=== PATIENT | female | born 1965 | race Caucasian/White ===

== ENCOUNTER 2017-03-15 01:10 | Inpatient (IN) | payer MEDICAID ==
[2017-03-15] MEDS ORDERED: Sodium Chloride 0.9% 1,000 ML IV ONE (01:33)
--- NOTE | 2017-03-15 01:35 | ED Physician Chart ---
Chief Complaint/HPI - Patient Information Date Seen:: 03/15/17 Time Seen:: 01:29 Chief Complaint:: ill History of Present Illness:: pt sent from [place] for cough and vomiting. ed staff has heard no cough. pt sev disability and is unable to give any hx...not verbal. has fever noted in ed and very high bp also Allergies:: Allergies Allergy/AdvReac Type Severity Reaction Status Date / Time Penicillins [PCN] Allergy Verified 03/15/17 01:26 Historian:: Patient Review of Systems - Review of Systems General/Constitutional: Fever, Other (nonverbal pt...severe ltd ros available) Eyes: Other (blind) Pulmonary: Cough GI: Vomiting Neurological: Weakness, Confusion (baseline//mental disability) Past Medical History - Past Medical History Past Medical History: Seizures, Other (blind, severe mental disability) Social History: Care Facility Medication: Reviewed Family Medical History - Family Member Mother History Unknown: Yes Physical Exam - Physical Examination General/Constitutional: Awake, Well-developed, well-nourished, Alert, No distress, Non-toxic appearing Other Gen/Cons comments:: pt sev disabled. eyes are bilat dejenerated/blind. all limbs contractured. no overt resp difficulty. no cough heard. Head: Atraumatic Eyes: Lids, conjuctiva normal Skin: Nl inspection, No rash, No skin lesions, No ecchymosis, Well hydrated, No lymphadenopathy ENMT: External ears, nose nl, Nasal exam nl, Lips, teeth, gums nl Neck: Nontender, Full ROM w/o pain, No JVD, No nuchal rigidity, No bruit, No mass, No stridor Respiratory: Nl effort/Exclusion, Clear to Auscultation, No Wheeze/Rhonchi/Rales Cardio Vascular: RRR, No murmur, gallop, rubs, NL S1 S2 GI: No tenderness/rebounding/guarding, No organomegaly, No hernia, Nondistended , No mass/bruits, No McBurney tenderness Other GI comments:: bowel sounds are sltly high in pitch. no obv tndrness..difficult to assess this pt due to nonverbal state. : No CVA tenderness Extremities: No tenderness or effusion, Full ROM, normal strength in all extremities, No edema, Normal digits & nails Neuro/Psych: DTR's symmetric, No focal deficits Other Neuro/Psych comments:: pt chronically debilitated...no obv acute neuro changes. cant comply w detailed exam. Misc: normal gait, Normal back, No paraspinal tenderness Labs/Radiology/EKG Results - Lab Results Results: Laboratory Tests 03/15/17 03/15/17 03/15/17 01:30 01:30 01:30 WBC 13.7 H RBC 4.51 Hgb 14.1 Hct 41.5 MCV 92.0 MCH 31.2 H MCHC Differential 33.9 RDW 13.7 Plt Count 303 MPV 6.9 Band Neutrophils % 6 Neutrophils (Manual) 88 H Lymphocytes 4 L Monocytes 2 Platelet Estimate ADEQUATE Sodium 141 Potassium 3.6 Chloride 101 Carbon Dioxide 25.2 Anion Gap 18.4 H BUN 13 Creatinine 0.4 L Est GFR ( Amer) > 60.0 Est GFR (Non-Af Amer) > 60.0 BUN/Creatinine Ratio 32.5 Glucose 165 H Whole Bld Lactic Acid 3.07 H* Calcium 8.9 Total Bilirubin 0.3 AST 21 ALT 14 Alkaline Phosphatase 88 Troponin I Total Protein 6.9 Albumin 3.7 Globulin 3.2 Albumin/Globulin Ratio 1.2 Lipase 20 Urine Source Urine Color Urine Clarity Urine pH Ur Specific [place] Urine Protein Urine Glucose (UA) Urine Ketones Urine Blood Urine Nitrate Urine Bilirubin Urine Urobilinogen Ur Leukocyte Esterase Urine RBC Urine WBC Ur Epithelial Cells Urine Bacteria Urine Trichomonas Carbamazepine 6.9 03/15/17 03/15/17 01:30 02:50 WBC RBC Hgb Hct MCV MCH MCHC Differential RDW Plt Count MPV Band Neutrophils % Neutrophils (Manual) Lymphocytes Monocytes Platelet Estimate Sodium Potassium Chloride Carbon Dioxide Anion Gap BUN Creatinine Est GFR ( Amer) Est GFR (Non-Af Amer) BUN/Creatinine Ratio Glucose Whole Bld Lactic Acid Calcium Total Bilirubin AST ALT Alkaline Phosphatase Troponin I 0.01 Total Protein Albumin Globulin Albumin/Globulin Ratio Lipase Urine Source CLEAN C Urine Color YELLOW Urine Clarity CLEAR Urine pH 7.0 Ur Specific [place] 1.015 Urine Protein 30 H Urine Glucose (UA) NEGATIVE Urine Ketones TRACE Urine Blood NEGATIVE Urine Nitrate NEGATIVE Urine Bilirubin NEGATIVE Urine Urobilinogen 1.0 Ur Leukocyte Esterase NEGATIVE Urine RBC 0-2 Urine WBC 0-2 Ur Epithelial Cells FEW Urine Bacteria FEW Urine Trichomonas OCCASIONAL H Carbamazepine - Radiology Results Results: ct abd/p- scattered air-fluid levels in small bowel . small fat cont periumbilical hernia. mild diverticulosis/no diverticulitis. elev hemidiaphragm ED Septic Shock - . Is Septic Shock (SBP<90, OR Lactate>4 mmol\L) present?: No Reassessment (Disposition) - Reassessment Reassessment:: spoke w dr arana at aprox 3 am who is admitting pt. cxr had not been completed due to staff oversight at that time was re-requested. cxr appears to show a ? inf in left upper lung. very unusual pattern and unclear to me what exactly this is so have ordered ct chest to eval. 6;40A CALL PLACED TO DR ARANA TO NOTIFY OF CXR. IF no call back by 7am will notify next shift Reassessment Condition:: Unchanged - Diagnosis Diagnosis:: Ileus vs Bowel Obstruction ? pneumonia left upper lung - Patient Disposition Admitted to:: Med/Surg Condition at Disposition:: Unchanged
[2017-03-15 01:44] LABS: HEMATOCRIT 41.5 % (35.0-45.0); HEMOGLOBIN 14.1 gm/dL (11.7-15.5); MEAN CORPUSCULAR HEMOGLOBIN 31.2 pg (27.0-31.0); MEAN CORPUSCULAR HGB CONC 33.9 pg (28.0-36.0); MEAN PLATELET VOLUME 6.9 fl; PLATELET COUNT 303 Th/cmm (150-400); RED BLOOD COUNT 4.51 Mil/cmm (3.80-5.10); RED CELL DISTRIBUTION WIDTH 13.7 % (11.5-20.0)
[2017-03-15 01:52] LABS: WHITE BLOOD COUNT 13.7 Th/cmm (4.8-10.8)
[2017-03-15 02:01] LABS: ALB/GLOB RATIO 1.2 (1.0-1.8); ALKALINE PHOSPHATASE 88 U/L (34-104); ANION GAP 18.4 (7.0-16.0); BILIRUBIN,TOTAL 0.3 mg/dL (0.3-1.0); BUN - UREA NITROGEN 13 mg/dL (7-25); BUN/CREATININE RATIO 32.5; CALCIUM SERUM 8.9 mg/dL (8.6-10.3); CARBON DIOXIDE 25.2 mEq/L (21.0-31.0); CHLORIDE 101 mEq/L (98-107); CREATININE - SERUM 0.4 mg/dL (0.6-1.2); GLUCOSE 165 mg/dL (70-105); LIPASE 20 U/L (11-82); POTASSIUM SERUM 3.6 mEq/L (3.5-5.1); SGOT 21 U/L (13-39); SGPT/ALT 14 U/L (7-52); SODIUM SERUM 141 mEq/L (136-145)
[2017-03-15 02:13] LABS: BAND NEUTROPHILE 6 % (0-10); NEUTROPHILS 88 % (40-80); PLATELET ESTIMATE ADEQUATE (NORMAL); TOTAL CELLS COUNTED 100
[2017-03-15 03:00] LABS: URINE BILIRUBIN NEGATIVE (NEGATIVE); URINE BLOOD NEGATIVE (NEGATIVE); URINE COLOR YELLOW; URINE GLUCOSE (UA) NEGATIVE (NEGATIVE); URINE KETONE TRACE mg/dL (NEGATIVE); URINE PROTEIN 30 mg/dL (NEGATIVE)
[2017-03-15 03:03] LABS: URINE BACTERIA FEW /hpf (NONE SEEN); URINE EPITHELIAL CELLS FEW /lpf (FEW); URINE RBC 0-2 /hpf (0-5); URINE WBC 0-2 /hpf (0-5)
[2017-03-15] MEDS ORDERED: Levofloxacin 500mg/100mL 500 MG/100 ML BAG IV ONE (05:30)
[2017-03-15] MEDS ORDERED: VITAMIN D3 PO SCH (09:00)
[2017-03-15] MEDS ORDERED: CALCIUM CITRATE PO SCH (09:00)
[2017-03-15] MEDS ORDERED: EAC PO SCH (09:00)
[2017-03-15] MEDS ORDERED: [UNRECOGNIZED DRUG - OTHER] PO SCH (09:00)
[2017-03-15] MEDS ORDERED: Non-Formulary Item 1 EA (Carbamazepine [Tegretol Xr] 400 MG) PO SCH (09:00)
--- NOTE | 2017-03-15 09:03 | Diagnostic Imaging Report ---
Portable chest x-ray HISTORY: Cough There is a severe scoliosis of the thoracolumbar spine convexity to the right. Patient is rotated. Heart size difficult to assess. Allowing for the deformity and poor inspiration, no focal pulmonary processes are seen. Retrocardiac air density is noted suggesting a hiatal hernia. IMPRESSION: 1. Severe scoliosis 2. No definite acute focal pulmonary processes 3. Retrocardiac air density suggesting a hiatal hernia. 4. Poor delineation of the aortic arch. Congenital abnormality cannot be excluded.
--- NOTE | 2017-03-15 09:11 | Diagnostic Imaging Report ---
CT scan abdomen and pelvis without intravenous contrast HISTORY: Vomiting Total DLP equals 410 CTDI equals 8.4 Exam is limited due to difficulty in patient positioning. There is a severe scoliosis of the thoracolumbar spine convexity to the right. Severe diffuse degenerative changes. Limited sections through the lower chest demonstrate findings consistent with a large hiatal hernia with a significant portion of the stomach in a retrocardiac location. Detail is limited due to the absence of oral/bowel contrast. No focal hepatic lesions are seen. The spleen appears normal. A punctate calculus is seen in the medullary region of the right kidney. No hydronephrosis. Subtle faint punctate calcification noted in the medullary region of the left kidney. No hydronephrosis. The exam of the pelvis demonstrates preservation of normal fat planes. No abnormal soft tissue masses or abnormal fluid collections. IMPRESSION: 1. Findings consistent with a relatively large retrocardiac hiatal hernia 2. Severe scoliosis of the thoracolumbar spine along with severe diffuse degenerative changes 3. Punctate bilateral renal calculi without hydronephrosis.
[2017-03-15] MEDS ORDERED: Fleet Enema 135 mL RC PRN (09:32)
[2017-03-15] MEDS ORDERED: Lactulose 10 Gm/15 mL 30mL UDC PO PRN (09:32)
[2017-03-15] MEDS ORDERED: Magnesium Hydroxide (MOM) 30 mL UDC PO PRN (09:32)
[2017-03-15] MEDS ORDERED: Promethazine DM 6.25/15mg-5mL 5 ML SYR PO PRN (09:32)
[2017-03-15] MEDS: Calcium Carb/Vit D 500 mg/200 U Tab PO SCH (10:53)
[2017-03-15] MEDS: Aspirin 81mg Chewable Tab PO SCH (10:53)
[2017-03-15] MEDS: Calcitonin (Salmon) 200 Iu/Actuation 3.7mL NS SCH (10:54)
[2017-03-15 10:55] LABS: MEAN CORPUSCULAR HEMOGLOBIN 31.8 pg (27.0-31.0)
[2017-03-15 10:58] LABS: % BASOPHILS 0.2 % (0.0-2.0); % EOSINOPHILS 0.7 % (0.0-5.0); % LYMPHOCYTES 6.8 % (20.0-50.0); % MONOCYTES 4.3 % (2.0-10.0); HEMOGLOBIN 12.7 gm/dL (11.7-15.5); MEAN CELL VOLUME 92.6 fl (81-100); MEAN CORPUSCULAR HGB CONC 34.4 pg (28.0-36.0); MEAN PLATELET VOLUME 6.8 fl; NEUTROPHILE ABSOLUTE 7.1 Th/cmm (1.8-8.0); PLATELET COUNT 244 Th/cmm (150-400); RED BLOOD COUNT 3.99 Mil/cmm (3.80-5.10); RED CELL DISTRIBUTION WIDTH 14.2 % (11.5-20.0)
[2017-03-15 11:01] LABS: WHITE BLOOD COUNT 8.1 Th/cmm (4.8-10.8)
[2017-03-15 11:14] LABS: ALB/GLOB RATIO 1.1 (1.0-1.8); ALKALINE PHOSPHATASE 75 U/L (34-104); ANION GAP 8.2 (7.0-16.0); BILIRUBIN,TOTAL 0.3 mg/dL (0.3-1.0); BUN - UREA NITROGEN 8 mg/dL (7-25); BUN/CREATININE RATIO 26.7; CALCIUM SERUM 8.6 mg/dL (8.6-10.3); CARBON DIOXIDE 25.5 mEq/L (21.0-31.0); CHLORIDE 109 mEq/L (98-107); CHOLESTEROL 154 mg/dL (<200); CREATININE - SERUM 0.3 mg/dL (0.6-1.2); GLUCOSE 99 mg/dL (70-105); MAGNESIUM 1.7 mg/dL (1.9-2.7); POTASSIUM SERUM 3.7 mEq/L (3.5-5.1); SGOT 18 U/L (13-39); SGPT/ALT 11 U/L (7-52); SODIUM SERUM 139 mEq/L (136-145); TRIGLYCERIDES 53 mg/dL (<150)
--- NOTE | 2017-03-15 11:14 | Diagnostic Imaging Report ---
KUB abdominal film HISTORY: Abdominal distention There is a nonspecific gas pattern of nondilated bowel. No free intraperitoneal air. Severe scoliosis of the thoracolumbar spine convexity to the right. IMPRESSION: 1. Nonspecific bowel gas pattern with nondilated large and small bowel 2. Severe scoliosis and degenerative changes within the spine
[2017-03-15] MEDS: Albuterol/Ipratropium Neb 3 ML AERS HHN SCH ×4 (11:31→22:52)
[2017-03-15] MEDS: D5-0.45NS 1,000 ML IV SCH (11:31)
[2017-03-15] MEDS: Levofloxacin 500mg/100mL 500 MG/100 ML BAG IV SCH (11:49)
--- NOTE | 2017-03-15 14:34 | History & Physical ---
ADMIT DATE: 03/15/2017 CHIEF COMPLAINT: VOMITING, COUGHING HISTORY OF PRESENT ILLNESS: The patient is a 52-year-old female with profound MR, seizure d/o, blindness, OP who was transferred from [facility] with the above mentioned symptoms. Pt apparently had also elevated temps at the board and care. Pertinent findings upon admission include leukocytosis (13.7), CT scan showing air-fluid levels, diverticulosis/diverticulitis and possible LYNDA infiltrate. PAST MEDICAL HISTORY: As noted above. PAST SURGICAL HISTORY: None listed, FAMILY HISTORY: Noncontributory. SOCIAL HISTORY: She lived at a B/C. No smoking, etoh. ALLERGIES: PENICILLINS. OUTPATIENT MEDICATIONS: Fleet enema q. 96 hours p.r.n. for severe constipation, milk of magnesia 30 mL hours, vitamins every day, acetaminophen p.r.n. for pain and fever, Dulcolax 10 mg q. 96 hours for mild constipation, calcitonin 200 international units every day, calcium with vitamin D3 b.i.d., carbamazepine 200 q. p.m. and 400 mg b.i.d. REVIEW OF SYSTEMS: CONSTITUTIONAL: fevers. CARDIAC: No chest pain or palpitations. PULMONARY: cough, ?productive GASTROINTESTINAL: vomiting. No reports of melena/brbpr or hematemesis GENITOURINARY: No bladder habit changes reported. NEUROLOGIC: more lethargic per medical records. PHYSICAL EXAMINATION: VITAL SIGNS: T-current is 99.1, T-max was 100.2, pulse 92, blood pressure 169/93, respirations 16-20, and satting 94-97% on 2 liters. GENERAL: WN, developmentally delayed female HEAD AND NECK: No jvd CARDIOVASCULAR: Regular rate with distant sounds LUNGS: Crackles bibasilarly, decreased at bases. ABDOMEN: Soft, supple, mildly tender, mod distended, normoactive bowel sounds. EXTREMITIES: Contracted upper and lower extremities. LABORATORY DATA: White count 13.7, H and H 14 and 41 and platelet count of 303. Chemistry showed anion gap of 18.4, BUN 13, creatinine 0.4, glucose 165. Lactic acid 1.71. LFTs were essentially within normal limits. UA showed positive for protein. Carbamazepine was 6.9. Chest x-ray showing severe scoliosis. No evidence of acute focal pulmonary processes, retrocardiac density suggesting hiatal hernia, poor delineation of aorta arch. CT of the abdomen and pelvis shows severe scoliosis of thoracolumbar spine, convexity to the right, severe diffuse DJD, no focal hepatic lesions, so the findings are consistent with a relatively large retrocardiac hiatal hernias, severe scoliosis. IMPRESSION: 1. R/O SBO vs ileus/constipation 2. Diverticulosis/diverticulitis. 3. Leukocytosis. 4. LYNDA infiltrate? 5. Fevers, rule out sepsis. 6. Severe intellectual disability. 7. Legally blind 8. Seizure d/o-stable 9. Severe scoliosis PLAN: The patient has been admitted to [facility] for further management and care. Kub will be order and diet will be started and advanced. Will monitor for GI symptomatology. She will be placed on Levaquin 500 mg IV every day and pulmonary supportive care with DuoNeb. Sputum C and S has been ordered. The patient also will be followed up with a repeat x-ray in the morning. The patient has been pancultured and she will be started on blood pressure medication as well as p.r.n. for SBP greater than 160. JOB# [id number] ERNESTINE
--- NOTE | 2017-03-15 16:59 | Admit Criteria Form ---
Admit Criteria Forms - Admit Criteria Diagnosis: PULMONARY DISEASE GRG Clinical Indications for Admission to Inpatient Care ( Place 'X' for any and all applicable criteria): Hospital admission is needed for appropriate care of the patient because of ANY ONE of the following(1): [ ]I. Impending or actual respiratory arrest ( Use Respiratory Failure Criteria for severe respiratory disease and long-term mechanical ventilation patients) (4) [ ]II. Severe airflow or ventilation abnormalities (not responsive to emergency and observation care treatment as appropriate) as indicated by ANY ONE of the following(5)(6)(7)(8) : [ ]a) PCO2 > 42 mm Hg (5.6 kPa) and pH < 7.35 (new) [ ]b) Documented PCO2 increase > 5 mm Hg (0.7 kPa) from disease baseline [ ]c) Airflow measurements[A] < 60% of previous best or predicted ( e.g., PEF <300 L/minute) despite intensive emergent treatment[B] [ ]d) Required respiratory treatments that are performable only in acute inpatient setting [ ]III. Severe respiratory findings (not responsive to emergency and observation care treatment as appropriate) including ANY ONE of the following(5)(8)(9): [ ]a) Respiratory distress as indicated by ALL of the following(5)(10): [ ]i) Patient with ANY ONE of the following: [ ]1) Dyspnea (difficulty breathing) [ ]2) Abnormal breathing pattern (eg, chest retractions) [ ]3) Tachypnea [ ]4) Other evidence of difficulty breathing [ ]ii) Evidence of respiratory compromise indicated by ANY ONE of the following: [ ]1) Hypoxemia [ ]2) Altered mental status [ ]3) Other evidence of respiratory compromise (eg, pulmonary edema on chest x-ray) [ ]b) Stridor [ ]c) Gross hemoptysis(11) [ ]d) Acute cyanosis [ ]IV. High-risk pulmonary infection as indicated by ANY ONE of the following( 19)(20)(21)(22): [ ]a) Temperature less than 95 degrees F(35 degrees C) or greater than 103.1 degrees F(39.5 degrees C) [ ]b) Hemodynamic instability that remains after emergency or observation level care (as appropriate) [ ]c) Immunocompromised patient (eg, AIDS, post transplant, neutropenic) [ ]d) History of severe COPD [ ]e) History of severely symptomatic congestive heart failure [ ]f) Other high-risk comorbidity (eg, poorly controlled diabetes, cirrhosis, chronic renal insufficiency) [ ]g) Hypoxemia (new) [ ]h) Outpatient, observation, or recovery facility therapy has failed, is not appropriate, or is not feasible [ ]V. Severe atelectasis or lung collapse(15)(16) [ ]. Tuberculosis requiring inpatient treatment as indicated by ANY ONE of the following(17)(18): [ ]a) New positive acid-fast bacilli sputum smear [ ]b) Positive acid-fast bacilli smear (under current treatment), with ANY ONE of the following: [ ]i) Unexposed household contacts [ ]ii) Infants or immunosuppressed household contacts [ ]iii) Patient unable or unwilling to avoid exposing others [ ]iv) Severe immunocompromised patient (eg, AIDS, post transplant, neutropenic) [ ]VII. Empyema or lung abscess(13)(14) [ ]VIII. Severe pulmonary arterial hypertension or pulmonary vascular disease requiring inpatient care indicated by ANY ONE of the following(24)(25): [ ]a) Initiation or change of vasodilators (IV, subcutaneous, or inhaled) or other vasoactive medications needed [ ]b) IV anticoagulation needed (eg, immediate anticoagulation necessary, alternatives not appropriate) [ ]c) Arterial or pulmonary artery catheter monitoring needed due to infusion or other treatment [ ]IX. Chronic lung disease with severe deterioration (not responsive to emergency and observation care treatment as appropriate) as indicated by ANY ONE of the following (6)(12): [ ]a) SaO2 5% below baseline in patient with chronic hypoxemia [ ]b) New requirement for supplemental oxygen to keep SaO2 at baseline or acceptable level [ ]c) Required supplemental oxygen performable only in acute inpatient setting [ ]d) Severe airflow or ventilation abnormalities [ ]e) Rapid rate of exacerbation onset [ ]f) Previously mobile patient unable to walk between rooms [ ]g) Inability to eat or sleep due to dyspnea [ ]h) Altered mental status [ ]X. Cystic fibrosis with severe deterioration as indicated by ANY ONE of the following(26)(27): [ ]a) Severe exacerbation that does not respond to intensified home therapy [ ]b) Pneumonia [ ]c) Hemoptysis [ ]d) Atelectasis [ ]e) Pneumothorax [ ]f) Respiratory failure [ ]g) Severe exacerbation with patient unable to perform prescribed treatments at home [ ]XI. Severe right heart failure as indicated by ANY ONE of the following(24) (25): [ ]a) Increasing organ failure (eg, liver congestion with significant and worsening or new elevation of transaminases) [ ]b) Anasarca [ ]c) Angina that requires inpatient care (eg, not treatable in emergency or observation level of care) [ ]d) Respiratory distress [ ]e) Syncope [ ]f) SBP < 90 mm Hg (new) [ ]XII. Injury requiring inpatient care (medical) as indicated by ANY ONE of the following(28): [ ]a) Significant inhalation injury (eg, smoke inhalation, other toxic inhalation) (29)(30)(31) [ ]b) Airway obstruction that remains or is unstable after emergency or observation level care(32) [ ]c) Severe pain requiring acute inpatient management [ ]d) Lung contusion [ ]e) Bronchial tree injury [ ]f) Air or fat emboli(33) [ ]g) Other injury not treatable in emergency or observation level care (eg, hemothorax) (34) [ ]XIII. Pulmonary hemorrhage or significant hemoptysis(11)(35)(36) [ ]XIV. Inpatient palliative care needed[C](37)(38)(39)(40) [ ]XV. Complications of lung transplant (eg, rejection, failure, respiratory infection) (23) [ X]XVI. Pulmonary Disease and ANY ONE of the following: [X ]a) General Admission Criteria [ ]b) Pediatric General Admission Criteria The original [facility] content created by [facility] has been revised. The portions of the content which have been revised are identified through the use of italic text or in bold, and [facility] has neither reviewed nor approved the modified material. All other unmodified content is copyright [facility]. Please see references footnoted in the original [facility] edition 2016 Admit Criteria Met?: Yes
[2017-03-16] MEDS: Albuterol/Ipratropium Neb 3 ML AERS HHN SCH ×6 (02:35→22:21)
[2017-03-16] MEDS: D5-0.45NS 1,000 ML IV SCH (04:35)
[2017-03-16 06:07] LABS: ANION GAP 9.3 (7.0-16.0); BUN - UREA NITROGEN 5 mg/dL (7-25); BUN/CREATININE RATIO 16.7; CALCIUM SERUM 8.2 mg/dL (8.6-10.3); CARBON DIOXIDE 25.1 mEq/L (21.0-31.0); CHLORIDE 103 mEq/L (98-107); CREATININE - SERUM 0.3 mg/dL (0.6-1.2); GLUCOSE 94 mg/dL (70-105); MAGNESIUM 1.7 mg/dL (1.9-2.7); POTASSIUM SERUM 3.4 mEq/L (3.5-5.1); SODIUM SERUM 134 mEq/L (136-145)
[2017-03-16 06:34] LABS: % BASOPHILS 0.5 % (0.0-2.0); % EOSINOPHILS 3.3 % (0.0-5.0); % LYMPHOCYTES 20.3 % (20.0-50.0); % MONOCYTES 12.1 % (2.0-10.0); % NEUTROPHILS 63.8 % (40.0-80.0); HEMATOCRIT 34.4 % (35.0-45.0); HEMOGLOBIN 11.8 gm/dL (11.7-15.5); MEAN CELL VOLUME 92.8 fl (81-100); MEAN CORPUSCULAR HEMOGLOBIN 31.8 pg (27.0-31.0); MEAN CORPUSCULAR HGB CONC 34.2 pg (28.0-36.0); MEAN PLATELET VOLUME 7.4 fl; NEUTROPHILE ABSOLUTE 3.6 Th/cmm (1.8-8.0); PLATELET COUNT 233 Th/cmm (150-400); RED BLOOD COUNT 3.71 Mil/cmm (3.80-5.10); RED CELL DISTRIBUTION WIDTH 13.6 % (11.5-20.0); WHITE BLOOD COUNT 5.7 Th/cmm (4.8-10.8)
[2017-03-16] MEDS: Multivitamin Tab PO SCH (08:41)
[2017-03-16] MEDS: Calcium Carb/Vit D 500 mg/200 U Tab PO SCH (08:42)
[2017-03-16] MEDS: Aspirin 81mg Chewable Tab PO SCH (08:42)
[2017-03-16] MEDS: Calcitonin (Salmon) 200 Iu/Actuation 3.7mL NS SCH (08:44)
[2017-03-16] MEDS ORDERED: Non-Formulary Item 1 EA (Multivitamin With Minerals [Myvitalife] 1 EACH) PO SCH (09:00)
[2017-03-16] MEDS ORDERED: Levofloxacin 500mg/100mL Premix Bag IV SCH (09:00)
[2017-03-16] MEDS: Levofloxacin 500mg/100mL 500 MG/100 ML BAG IV SCH (09:11)
--- NOTE | 2017-03-16 09:15 | Diagnostic Imaging Report ---
CHEST X-RAY: AP view INDICATION: Pneumonia, bronchitis COMPARISON: Chest x-ray on 03/15/[address] abdomen and pelvis on 03/15/2017 FINDINGS: Suboptimal lung volumes are seen with retrocardiac air filled density. Suboptimal lung volume are seen with increased interstitial lung markings. Severe spinal scoliosis is noted. Heart size cannot be well assessed on this exam. IMPRESSION: Suboptimal lung volume with retrocardiac air filled density likely representing a large hiatal hernia when compared to previous examinations. Increased interstitial lung markings which may be related to patient's suboptimal lung volumes and bronchovascular crowding. Left basal density which may be due to superimposition of soft tissue structures. Small left effusion versus atelectasis versus infiltrate in this region cannot be completely excluded.
[2017-03-16] MEDS ORDERED: Potassium Chloride 40 MEQ, Lidocaine 1% 20mL Vial 25 MG in Sodium Chloride 0.9% 250 ML IV ONE (09:47)
[2017-03-16] MEDS ORDERED: Mag Sulfate 2gm/50mL Premix 2 GM/50 ML BAG IV ONE (09:48)
[2017-03-17] MEDS: Albuterol/Ipratropium Neb 3 ML AERS HHN SCH ×6 (03:08→23:23)
[2017-03-17 05:59] LABS: % BASOPHILS 0.2 % (0.0-2.0); % EOSINOPHILS 4.2 % (0.0-5.0); % LYMPHOCYTES 20.3 % (20.0-50.0); % NEUTROPHILS 64.3 % (40.0-80.0); HEMATOCRIT 36.1 % (35.0-45.0); HEMOGLOBIN 12.4 gm/dL (11.7-15.5); MEAN CELL VOLUME 93.6 fl (81-100); MEAN CORPUSCULAR HEMOGLOBIN 32.2 pg (27.0-31.0); MEAN CORPUSCULAR HGB CONC 34.4 pg (28.0-36.0); MEAN PLATELET VOLUME 6.4 fl; NEUTROPHILE ABSOLUTE 3.8 Th/cmm (1.8-8.0); PLATELET COUNT 246 Th/cmm (150-400); RED BLOOD COUNT 3.85 Mil/cmm (3.80-5.10); RED CELL DISTRIBUTION WIDTH 13.9 % (11.5-20.0)
[2017-03-17 06:34] LABS: ANION GAP 5.7 (7.0-16.0); BUN - UREA NITROGEN 5 mg/dL (7-25); CALCIUM SERUM 8.7 mg/dL (8.6-10.3); CARBON DIOXIDE 24.1 mEq/L (21.0-31.0); CHLORIDE 111 mEq/L (98-107); CREATININE - SERUM 0.2 mg/dL (0.6-1.2); GLUCOSE 90 mg/dL (70-105); POTASSIUM SERUM 4.8 mEq/L (3.5-5.1); SODIUM SERUM 136 mEq/L (136-145)
[2017-03-17] MEDS: Calcitonin (Salmon) 200 Iu/Actuation 3.7mL NS SCH (09:30)
[2017-03-17] MEDS: Levofloxacin 500mg/100mL 500 MG/100 ML BAG IV SCH (09:35)
[2017-03-17] MEDS: Multivitamin Tab PO SCH (10:00)
[2017-03-17] MEDS: Aspirin 81mg Chewable Tab PO SCH (10:00)
[2017-03-17] MEDS: Calcium Carb/Vit D 500 mg/200 U Tab PO SCH (10:00)
--- NOTE | 2017-03-17 10:36 | Diagnostic Imaging Report ---
Portable chest x-ray HISTORY: Cough The exam demonstrates abnormal density in the left lower hemithorax with a retrocardiac air density unchanged from 03/16/2017. Findings consistent with a probable large hiatal hernia. Exact location of the diaphragm is unclear. No focal processes within the right lung. Severe scoliosis of the thoracolumbar spine convexity to the right. IMPRESSION: 1. No significant change since 03/16/2017 as noted above.
[2017-03-18] MEDS: Albuterol/Ipratropium Neb 3 ML AERS HHN SCH ×6 (02:58→23:03)
[2017-03-18 05:32] LABS: % BASOPHILS 0.5 % (0.0-2.0); % EOSINOPHILS 5.8 % (0.0-5.0); % MONOCYTES 9.1 % (2.0-10.0); % NEUTROPHILS 63.6 % (40.0-80.0); HEMATOCRIT 37.1 % (35.0-45.0); HEMOGLOBIN 12.8 gm/dL (11.7-15.5); MEAN CELL VOLUME 93.2 fl (81-100); MEAN CORPUSCULAR HEMOGLOBIN 32.1 pg (27.0-31.0); MEAN CORPUSCULAR HGB CONC 34.4 pg (28.0-36.0); NEUTROPHILE ABSOLUTE 3.2 Th/cmm (1.8-8.0); PLATELET COUNT 246 Th/cmm (150-400); RED BLOOD COUNT 3.98 Mil/cmm (3.80-5.10); RED CELL DISTRIBUTION WIDTH 13.7 % (11.5-20.0)
[2017-03-18 05:56] LABS: ANION GAP 7.8 (7.0-16.0); BUN - UREA NITROGEN 5 mg/dL (7-25); BUN/CREATININE RATIO 16.7; CALCIUM SERUM 8.7 mg/dL (8.6-10.3); CARBON DIOXIDE 23.3 mEq/L (21.0-31.0); CHLORIDE 106 mEq/L (98-107); CREATININE - SERUM 0.3 mg/dL (0.6-1.2); GLUCOSE 110 mg/dL (70-105); POTASSIUM SERUM 4.1 mEq/L (3.5-5.1); SODIUM SERUM 133 mEq/L (136-145)
[2017-03-18] MEDS: Calcium Carb/Vit D 500 mg/200 U Tab PO SCH (08:54)
[2017-03-18] MEDS: Levofloxacin 500mg/100mL 500 MG/100 ML BAG IV SCH (08:54)
[2017-03-18] MEDS: Multivitamin Tab PO SCH (08:54)
[2017-03-18] MEDS: Calcitonin (Salmon) 200 Iu/Actuation 3.7mL NS SCH (08:54)
[2017-03-18] MEDS: Aspirin 81mg Chewable Tab PO SCH (08:57)
[2017-03-18] MEDS: D5-0.45NS 1,000 ML IV SCH (12:00)
[2017-03-19] MEDS: Albuterol/Ipratropium Neb 3 ML AERS HHN SCH ×3 (02:51→11:09)
[2017-03-19 06:22] LABS: ALB/GLOB RATIO 1.2 (1.0-1.8); ALKALINE PHOSPHATASE 73 U/L (34-104); BILIRUBIN,TOTAL 0.3 mg/dL (0.3-1.0); BUN - UREA NITROGEN 9 mg/dL (7-25); CALCIUM SERUM 8.9 mg/dL (8.6-10.3); CARBON DIOXIDE 27.5 mEq/L (21.0-31.0); CHLORIDE 105 mEq/L (98-107); CREATININE - SERUM 0.3 mg/dL (0.6-1.2); GLUCOSE 90 mg/dL (70-105); MAGNESIUM 1.8 mg/dL (1.9-2.7); POTASSIUM SERUM 3.5 mEq/L (3.5-5.1); SGOT 18 U/L (13-39); SGPT/ALT 9 U/L (7-52); SODIUM SERUM 136 mEq/L (136-145)
[2017-03-19] MEDS: Multivitamin Tab PO SCH (08:49)
[2017-03-19] MEDS: Calcium Carb/Vit D 500 mg/200 U Tab PO SCH (08:49)
[2017-03-19] MEDS: Aspirin 81mg Chewable Tab PO SCH (08:50)
[2017-03-19] MEDS: D5-0.45NS 1,000 ML IV SCH (08:51)
[2017-03-19] MEDS: Calcitonin (Salmon) 200 Iu/Actuation 3.7mL NS SCH (08:58)
--- NOTE | 2017-03-21 01:16 | Discharge Summary ---
DATE OF DISCHARGE: 03/19/2017 ADMITTING DIAGNOSES: Vomiting, coughing, rule out small bowel obstruction, history of ileus, constipation, leukocytosis, possible left upper lobe infiltrate, fever, rule out sepsis. SECONDARY DIAGNOSES: Include history of ileus, constipation, history of severe intellectual disability, legally blind, history of seizure disorder, history of severe scoliosis. DISCHARGE DIAGNOSES: Ileus, constipation, resolved, small bowel obstruction ruled out, leukocytosis resolved, fever resolved. No evidence of sepsis. CONSULTANTS: There were no consultants used during this admission. MAJOR PROCEDURES: There was a CT scan of the abdomen and pelvis without intravenous contrast on 03/15/2017 showing findings consistent with a relatively large retrocardiac hiatal hernia. There is severe scoliosis of the thoracolumbar spine along with severe diffuse DJD. There was a KUB done on 03/15/2017 showing nonspecific bowel gas pattern with nondilated large and small bowel. There is severe scoliosis and DJD changes within the spine. MEDICATIONS ON DISCHARGE: Tylenol 650 p.o. q. 4 p.r.n. for fever or chills, Bisacodyl 10 mg q. 96 hours p.r.n. for severe constipation, calcitonin 200 international units every day, calcium citrate with vitamin D 1 tab b.i.d., carbamazepine 200 mg q.p.m. and 400 mg b.i.d., magnesium hydroxide 30 mL q. 72 hours p.r.n. and multivitamins with minerals, ciprofloxacin 250 mg b.i.d. x 7 days. BRIEF HOSPITAL COURSE: This is a 52-year-old female with profound mental retardation, seizure disorder who was transferred to the ER with vomiting and occasional cough. She underwent the above-mentioned procedures and was admitted for possible small-bowel obstruction versus ileus and a possible left upper lobe infiltrate, which was read by ER via the initial x-ray. Her white count at the time of admission was 13.7. She had an anion gap of 18.4. She was admitted and placed on IV fluids and IV antibiotics. She was started on clear liquids and was able to tolerate her p.o., although initially with poor p.o. intake. By 03/15/2017, her white count had improved to a level 8.1 and her chemistries also had showed some improvement. Her oral intakes were gradually increased to a pureed diet and she has been able to take up to 75% of her meals. CONDITION ON DISCHARGE: Stable. DISPOSITION: The patient was discharged back to her board and care. [facility]# [id number]
== END 2017-03-19 15:14 | DRG 247 ==
LOC: ER 01:10 → TELE 03:47
PROVIDERS: ADMIT Internal Medicine; ATTEND Internal Medicine
DX: K56.7 Ileus, unspecified (principal); F72 Severe intellectual disabilities; M41.9 Scoliosis, unspecified; G40.909 Epilepsy, unspecified, not intractable, without status epilepticus; K57.92 Diverticulitis of intestine, part unspecified, without perforation or abscess without bleeding; H54.8 Legal blindness, as defined in USA; R50.9 Fever, unspecified; Z88.0 Allergy status to penicillin
CPT/HCPCS: 36415-UA; 71010-TC; 74000-TC; 80048-TC; 80053-TC; 80061-TC; 80156-TC; 81001-TC; 82948-90; 83036-90; 83605; 83690-TC; 83735-TC; 84443-TC; 84484-TC; 85007-TC; 85025-TC; 85027-TC; 87070; 94640; 94760; 96374; C9113; J1956; J2001; J2405; J3475; J3480; J7030; J7042; Z7610